=== PATIENT | female | born 1940 | race Caucasian/White ===

== ENCOUNTER 2016-08-03 06:49 | Day surgery (SDC) | payer BC ==
[2016-08-03] VITALS (13 sets, daily range): BP systolic 100–118; BP diastolic 46–64; PULSE 48–64; RESP 16–25; Ht 162.6 cm; Wt 84.0 kg
[~2016-08-03] VITALS: Ht 162.6 cm; Wt 84.0 kg
[2016-08-03] MEDS ORDERED: EPHEDrine SULFATE 50 MG/5 ML SYG ONE (07:00)
[2016-08-03] MEDS ORDERED: LEVO75TA65 PO (07:27)
[2016-08-03] MEDS ORDERED: NAPR-688 PO (07:28)
[2016-08-03] MEDS ORDERED: BISO5TAB21 PO (07:30)
[2016-08-03] MEDS ORDERED: POLYMYXIN/BACITRACIN 1L IRRIG ONE (07:37)
[2016-08-03] MEDS ORDERED: GELATIN SIZE 100 SPONGE ONE (07:37)
[2016-08-03] MEDS ORDERED: THROMBIN 5000 UNIT VIAL ONE (07:37)
[2016-08-03] MEDS ORDERED: ETOMIDATE 20 MG INJ ONE (09:02)
[2016-08-03] MEDS ORDERED: MIDAZOLAM 1 MG/ML 2 ML INJ ONE (09:02)
[2016-08-03] MEDS ORDERED: FENTAnyl 50 MCG/ML VIAL ONE (09:03)
[2016-08-03] MEDS ORDERED: METOCLOPRAMIDE 10 MG INJ ONE (09:03)
[2016-08-03] MEDS ORDERED: ROPIVACAINE 0.5 % 30 ML VIAL ONE (09:03)
[2016-08-03] MEDS ORDERED: PROPOFOL 100 ML ONE (09:13)
[2016-08-03] MEDS ORDERED: LIDOCAINE 2% (MDV) 20 ML INJ INJ ONE (09:15)
[2016-08-03] MEDS ORDERED: CEFAZOLIN 1 GM INJ ONE (09:15)
[2016-08-03] MEDS ORDERED: POLYMYXIN/BACITRACIN 1L IRRIG IRR ONE (09:15)
[2016-08-03] MEDS ORDERED: BUPIVACAINE 0.5% 30 ML VIAL INJ ONE (09:15)
[2016-08-03] MEDS ORDERED: BUPIVACAINE 0.5% (SDV) 30 ML INJ ONE (09:32)
[2016-08-03] MEDS ORDERED: LIDOCAINE 2% (MDV) 20 ML INJ ONE (09:32)
[2016-08-03] MEDS ORDERED: MEPERIDINE 25 MG INJ IV PRN (10:30)
[2016-08-03] MEDS ORDERED: HYDROmorphONE (0.2 MG/ML) 10ML SYG IV PRN ×3 (10:30)
[2016-08-03] MEDS ORDERED: DIPHENHYDRAMINE 50 MG INJ IV PRN (10:30)
[2016-08-03] MEDS ORDERED: OXYCODONE/ACETAMINOPHEN (5/325) TAB PO PRN ×2 (10:30)
[2016-08-03] MEDS ORDERED: EPHEDrine SULFATE 50 MG/5 ML SYG IV PRN (10:30)
[2016-08-03] MEDS ORDERED: ONDANSETRON 4 MG INJ IV PRN (10:30)
[2016-08-03] MEDS ORDERED: HYDROCODONE/APAP (10/325) TAB PO PRN (11:00)
--- NOTE | 2016-08-03 12:38 | RADRPT ---
PROCEDURE: XR Left Foot. CLINICAL INDICATION: Left foot pain. TECHNIQUE: Three views. Frontal, lateral, and oblique. COMPARISON: None. FINDINGS: There are postoperative changes of the second metatarsal phalangeal joint region with probable resec tion of a portion of the joint and gas in the soft tissues at this site. In addition, a single scre w is transfixing the distal shaft of the third metatarsal. There is solid bony union at this site. There is an acute nondisplaced transverse fracture through the base of the fifth metatarsal with th e fracture extending to the proximal articular surface. There is overlying soft tissue swelling. There is no lytic or blastic lesion. IMPRESSION: 1. Postoperative changes. 2. Acute nondisplaced fracture of the base of the fifth metatarsal. RPTAT: QQ .Fahad Hernandez MD, MD Date Time Electronically viewed and signed by .Fahad Hernandez MD, on 08/03/2016 12:37 .R/
--- NOTE | 2016-08-03 13:06 | RADRPT ---
PROCEDURE: Intraoperative fluoroscopy CLINICAL INDICATION: Status post hardware removal from the second toe TECHNIQUE: 00:05 seconds of fluoroscopy time was utilized. 3 Images are submitted for interpretati on. COMPARISON: Plain films from the same day FINDINGS: Successful hardware removal and osteotomy of the left second toe was performed. Alignment is anatom ic. 5 seconds of fluoroscopy time used. IMPRESSION: Successful hardware removal and osteotomy of the left second toe. 5 seconds of fluoroscopy time use d. Anatomic alignment. RPTAT: EE .Sandi Araiza MD, Date Time Electronically viewed and signed by .Sandi Araiza MD, on 08/03/2016 13:05 .F/
== END 2016-08-03 12:11 | disposition home or self-care (01) ==
LOC: SDS 06:49
PROVIDERS: ATTEND Podiatrist Foot & Ankle Surgery
DX: M19.072 Primary osteoarthritis, left ankle and foot (principal)
CPT/HCPCS: 28288; 73630; 88300; 88304; 88311; J0690; J2250; J2765; J3010; L3260; Z7512; Z7610; J2795

== ENCOUNTER 2017-01-25 12:14 | Day surgery (SDC) | END 2017-01-25 21:33 | disposition home or self-care (01) | DX: K20.9 Esophagitis, unspecified (principal); K44.9 Diaphragmatic hernia without obstruction or gangrene; K29.50 Unspecified chronic gastritis without bleeding; E03.9 Hypothyroidism, unspecified; Z88.2 Allergy status to sulfonamides | CPT/HCPCS: 43239; 88305; 88312; 88313; J3010; Z7610 ==